=== PATIENT | female | born 1935 | race Caucasian/White ===

== ENCOUNTER → 2017-08-17 | Outpatient (CLI) | payer MEDICARE, OTHER ==
[2017-08-17 13:18] LABS: HEMOGLOBIN 13.6 g/dL (12.0-15.5); HGB HCT DIFFERENCE 1.8; MEAN CORPUSCULAR HEMOGLOBIN 33.3 pg (27.0-33.4); MEAN CORPUSCULAR HGB CONC 34.9 g/dL (32.0-36.0); MEAN CORPUSCULAR VOLUME 95 fl (80-97); RED BLOOD COUNT 4.09 10^6/uL (3.72-5.28); RED CELL DISTRIBUTION WIDTH 12.7 % (11.5-14.0); WHITE BLOOD COUNT 9.1 10^3/uL (4.0-10.5)
== END ==
LOC: OD 12:15
PROVIDERS: ATTEND Internal Medicine
DX: R68.84 Jaw pain (principal)
CPT/HCPCS: 36415; 85027

== ENCOUNTER → 2018-03-27 | Outpatient (CLI) | payer MEDICARE, OTHER ==
[2018-03-27 10:39] LABS: ALANINE AMINOTRANSFERASE 26 U/L (9-52); ALKALINE PHOSPHATASE 86 U/L (38-126); ANION GAP 14 (5-19); ASPARTATE AMINO TRANSFERASE 22 U/L (14-36); BILIRUBIN,DIRECT 0.3 mg/dL (0.0-0.4); BILIRUBIN,TOTAL 0.5 mg/dL (0.2-1.3); BLOOD UREA NITROGEN 38 mg/dL (7-20); CALCIUM 10.8 mg/dL (8.4-10.2); CARBON DIOXIDE 31 mmol/L (22-30); CHLORIDE 102 mmol/L (98-107); CHOLESTEROL 198.89 mg/dL (0-200); GLUCOSE 106 mg/dL (75-110); POTASSIUM 4.4 mmol/L (3.6-5.0); SODIUM 147.1 mmol/L (137-145); TOTAL PROTEIN 8.5 g/dL (6.3-8.2); TRIGLYCERIDES 150 mg/dL (<150)
[2018-03-27 10:50] LABS: DIRECT LDL 109 mg/dL (<100)
[2018-03-27 10:55] LABS: FREE T4 (FREE THYROXINE) 1.09 ng/dL (0.78-2.19)
[2018-03-27 11:09] LABS: THYROID STIMULATING HORMONE 2.61 uIU/mL (0.47-4.68)
== END ==
LOC: OD 09:38
PROVIDERS: ATTEND Internal Medicine
DX: E11.9 Type 2 diabetes mellitus without complications (principal); E03.9 Hypothyroidism, unspecified; E78.00 Pure hypercholesterolemia, unspecified; Z79.899 Other long term (current) drug therapy
CPT/HCPCS: 36415; 80053; 80061; 83036; 84439; 84443

== ENCOUNTER → 2018-04-05 | Outpatient (CLI) | payer MEDICARE, OTHER ==
[2018-04-05 16:41] LABS: ABSOLUTE BASOPHILS # (AUTO) 0.1 10^3/uL (0.0-0.2); ABSOLUTE EOSINOPHILS # (AUTO) 0.5 10^3/uL (0.0-0.6); ABSOLUTE LYMPHOCYTES (AUTO) 3.2 10^3/uL (0.5-4.7); ABSOLUTE MONOCYTES (AUTO) 0.7 10^3/uL (0.1-1.4); ABSOLUTE NEUT (AUTO) 3.7 10^3/uL (1.7-8.2); BASOPHILS % (AUTO) 1.1 % (0-2); EOSINOPHILS % (AUTO) 6.4 % (0-6); HEMATOCRIT 37.1 % (36.0-47.0); HEMOGLOBIN 12.7 g/dL (12.0-15.5); MEAN CORPUSCULAR HEMOGLOBIN 31.9 pg (27.0-33.4); MEAN CORPUSCULAR HGB CONC 34.3 g/dL (32.0-36.0); MEAN CORPUSCULAR VOLUME 93 fl (80-97); PLATELET COUNT 274 10^3/uL (150-450); RED BLOOD COUNT 3.98 10^6/uL (3.72-5.28); RED CELL DISTRIBUTION WIDTH 12.9 % (11.5-14.0); SEGMENTED NEUTROPHILS % (AUTO) 45.5 % (42-78); TOTAL CELLS COUNTED % (AUTO) 100 %; WHITE BLOOD COUNT 8.2 10^3/uL (4.0-10.5)
[2018-04-05 17:04] LABS: IRON 77.1 ug/dL (37-170)
== END ==
LOC: OD 15:28
PROVIDERS: ATTEND Internal Medicine
DX: D64.9 Anemia, unspecified (principal); R53.83 Other fatigue
CPT/HCPCS: 36415; 82607; 82728; 83540; 85025

== ENCOUNTER 2018-10-12 15:47 | Inpatient (IN) | payer MEDICARE, OTHER ==
[2018-10-12] MEDS ORDERED: MECLIZINE HCL 25 MG TABLET PO ONE (17:56)
[2018-10-12] MEDS ORDERED: NORMAL SALINE 1000 ML 1,000 ML IV ONE ×2 (17:56→20:25)
--- NOTE | 2018-10-12 18:03 | ER Document Report ---
ED Medical Screen (RME) - General Chief Complaint: Dizziness Stated Complaint: WEAKNESS,DIZZINESS Time Seen by Provider: 10/12/18 17:55 TRAVEL OUTSIDE OF THE [place] IN LAST 30 DAYS: No - HPI Notes: 10/12/18 17:57 Patient is an 82-year-old female with a history of hypertension, hypothyroidism , chronic pain who presents to the ED complaining of dizziness after having 24 hours of nausea, vomiting, and diarrhea. Patient states that the symptoms started 2 days ago. Patient states that the dizziness is worse when she stands from a seated position and she feels like she is spinning, not the room. Denies any significant cardiac pulmonary medical history otherwise. She is able to eat and drink without any difficulties. She is urinating normally. Pt states she was leaning forward on the toilet when she lost her balance and ' bumped' her head off of the door. No LOC. No head pain since then or swelling. Dizziness was prior. Not on blood thinners. Denies any headache, fever, neck pain, changes in vision/speech/mentation/hearing, URI, sore throat, chest pain, palpitations, syncope, cough, shortness of breath, wheeze, dyspnea, abdominal pain, nausea/vomiting/diarrhea, urinary retention, dysuria, hematuria , loss of control of bowel or bladder, numbness/tingling, saddle anesthesia, muscle paralysis/weakness, or rash. I have treated and performed a rapid initial assessment of this patient. A comprehensive ED assessment and evaluation of the patient, analysis of test results and completion of medical decision making process will be conducted by additional ED providers. Reviewed with Dr. Tamayo. No further labs/imaging needed based on this triage visit until eval with mainside provider. PHYSICAL EXAMINATION: GENERAL: Well-appearing, well-nourished and in no acute distress. A&Ox4. Answers questions appropriately. Head: atraumatic. No tenderness. No ecchymosis, step-off, hematoma, or bogginess. No wallace sign. Eyes: PERRLA, EOMI, No obvious nystagmus. Ears: no hemotympanum Throat: No airway compromise. tongue midline. Uvula rises midline. LUNGS: Breath sounds clear to auscultation bilaterally and equal. No wheezes rales or rhonchi. HEART: Regular rate and rhythm without murmurs, rubs, gallops. Extremities: No cyanosis, clubbing, or edema b/l. NEUROLOGICAL: Normal speech, normal gait. Cranial nerves grossly intact. GCS of 15. PSYCH: Normal mood, normal affect. - Related Data Allergies/Adverse Reactions: guaifenesin [From Entex] Allergy (Severe, Verified 10/12/18 17:42) rash nitrofurantoin macrocrystalline [From Macrodantin] Allergy (Severe, Verified 17:42) rash phenylephrine HCl [From Entex] Allergy (Severe, Verified 10/12/18 17:42) rash phenylpropanolamine [From Entex] Allergy (Severe, Verified 10/12/18 17:42) rash pseudoephedrine tannate [From Entex] Allergy (Severe, Verified 10/12/18 17:42) rash Sulfa (Sulfonamide Antibiotics) Allergy (Severe, Verified 10/12/18 17:42) rash Home Medications: citalopram. amlodipine. HCTZ. synthroid. zyrtec. magnesium. mobic. gabapentin. norco. trazedone. aspirinflonase. restasis. pataday Past Medical History - Social History Chew tobacco use (# tins/day): No Frequency of alcohol use: None Drug Abuse: None - Past Medical History Cardiac Medical History: Reports: Hx Hypertension - on meds Denies: Hx Coronary Artery Disease, Hx Heart Attack Pulmonary Medical History: Denies: Hx Asthma, Hx Bronchitis, Hx COPD, Hx Pneumonia Neurological Medical History: Denies: Hx Cerebrovascular Accident, Hx Seizures Renal/ Medical History: Denies: Hx Peritoneal Dialysis GI Medical History: Denies: Hx Hepatitis, Hx Hiatal Hernia, Hx Ulcer Musculoskeltal Medical History: Reports Hx Arthritis Infectious Medical History: Denies: Hx Hepatitis Past Surgical History: Reports: Hx Hysterectomy. Denies: Hx Mastectomy, Hx Open Heart Surgery, Hx Pacemaker - Immunizations Hx Diphtheria, Pertussis, Tetanus Vaccination: No Physical Exam - Vital signs Vitals: Temp Pulse Resp BP Pulse Ox 97.3 F 64 16 127/56 H 91 L 10/12/18 15:52 10/12/18 15:52 10/12/18 15:52 10/12/18 15:52 10/12/18 15:52 Course - Vital Signs Vital signs: Temp Pulse Resp BP Pulse Ox 97.3 F 64 16 127/56 H 91 L 10/12/18 15:52 10/12/18 15:52 10/12/18 15:52 10/12/18 15:52 10/12/18 15:52
[2018-10-12 18:58] LABS: ABSOLUTE BASOPHILS # (AUTO) 0.1 10^3/uL (0.0-0.2); ABSOLUTE EOSINOPHILS # (AUTO) 0.4 10^3/uL (0.0-0.6); ABSOLUTE LYMPHOCYTES (AUTO) 2.7 10^3/uL (0.5-4.7); ABSOLUTE MONOCYTES (AUTO) 1.3 10^3/uL (0.1-1.4); ABSOLUTE NEUT (AUTO) 11.8 10^3/uL (1.7-8.2); BASOPHILS % (AUTO) 0.5 % (0-2); EOSINOPHILS % (AUTO) 2.3 % (0-6); HEMATOCRIT 36.3 % (36.0-47.0); HEMOGLOBIN 12.4 g/dL (12.0-15.5); LYMPHOCYTES % (AUTO) 16.6 % (13-45); MEAN CORPUSCULAR HEMOGLOBIN 32.9 pg (27.0-33.4); MEAN CORPUSCULAR HGB CONC 34.1 g/dL (32.0-36.0); MEAN CORPUSCULAR VOLUME 96 fl (80-97); MONOCYTES % (AUTO) 8.1 % (3-13); PLATELET COUNT 234 10^3/uL (150-450); RED BLOOD COUNT 3.77 10^6/uL (3.72-5.28); RED CELL DISTRIBUTION WIDTH 12.7 % (11.5-14.0); SEGMENTED NEUTROPHILS % (AUTO) 72.5 % (42-78); TOTAL CELLS COUNTED % (AUTO) 100 %; WHITE BLOOD COUNT 16.2 10^3/uL (4.0-10.5)
[2018-10-12 19:26] LABS: ALANINE AMINOTRANSFERASE 17 U/L (9-52); ALBUMIN 4.5 g/dL (3.5-5.0); ALKALINE PHOSPHATASE 81 U/L (38-126); ANION GAP 12 (5-19); ASPARTATE AMINO TRANSFERASE 31 U/L (14-36); BILIRUBIN,DIRECT 0.4 mg/dL (0.0-0.4); BILIRUBIN,TOTAL 0.7 mg/dL (0.2-1.3); BLOOD UREA NITROGEN 83 mg/dL (7-20); CALCIUM 9.1 mg/dL (8.4-10.2); CARBON DIOXIDE 28 mmol/L (22-30); CHLORIDE 95 mmol/L (98-107); GLUCOSE 118 mg/dL (75-110); POTASSIUM 4.7 mmol/L (3.6-5.0); SODIUM 135.3 mmol/L (137-145); TOTAL PROTEIN 8.1 g/dL (6.3-8.2)
--- NOTE | 2018-10-12 20:09 | ER Document Report ---
ED General - General Chief Complaint: Dizziness Stated Complaint: WEAKNESS,DIZZINESS Time Seen by Provider: 10/12/18 17:55 Notes: Patient is an 82-year-old female who presents to the emergency department with dizziness. She is started having nausea, vomiting, and diarrhea on Sunday. Per her daughter and her who are at bedside, on she laid in bed most of the day and did not do anything. On Sunday they attempted to rehydrate her at home, but she still felt dizzy. She says she still felt dizzy , but not quite as much as she did earlier. She also has had 2 falls in this time. She has a history of scoliosis, and she states that her neck does not feel quite right. She constantly wears a soft cervical collar for comfort. Her daughter states that she has not been herself, but it might be because she has been dehydrated from her vomiting and diarrhea. She denies any fever, chills, or night sweats. She has a history of hypertension, urinary tract infections, hypothyroidism, and chronic back pain. She sees Dr. Gray her primary care doctor and Dr. Gold is her gambling counsellor. TRAVEL OUTSIDE OF THE [place] IN LAST 30 DAYS: No - Related Data Allergies/Adverse Reactions: guaifenesin [From Entex] Allergy (Severe, Verified 10/12/18 17:42) rash nitrofurantoin macrocrystalline [From Macrodantin] Allergy (Severe, Verified 17:42) rash phenylephrine HCl [From Entex] Allergy (Severe, Verified 10/12/18 17:42) rash phenylpropanolamine [From Entex] Allergy (Severe, Verified 10/12/18 17:42) rash pseudoephedrine tannate [From Entex] Allergy (Severe, Verified 10/12/18 17:42) rash Sulfa (Sulfonamide Antibiotics) Allergy (Severe, Verified 10/12/18 17:42) rash Home Medications: citalopram. amlodipine. HCTZ. synthroid. zyrtec. magnesium. mobic. gabapentin. norco. trazedone. aspirinflonase. restasis. pataday Past Medical History - Social History Smoking Status: Never Smoker Chew tobacco use (# tins/day): No Frequency of alcohol use: None Drug Abuse: None Family History: Reviewed & Not Pertinent Patient has suicidal ideation: No Patient has homicidal ideation: No - Past Medical History Cardiac Medical History: Reports: Hx Hypertension - on meds Denies: Hx Coronary Artery Disease, Hx Heart Attack Pulmonary Medical History: Denies: Hx Asthma, Hx Bronchitis, Hx COPD, Hx Pneumonia Neurological Medical History: Denies: Hx Cerebrovascular Accident, Hx Seizures Renal/ Medical History: Denies: Hx Peritoneal Dialysis GI Medical History: Denies: Hx Hepatitis, Hx Hiatal Hernia, Hx Ulcer Musculoskeletal Medical History: Reports Hx Arthritis Infectious Medical History: Denies: Hx Hepatitis Past Surgical History: Reports: Hx Hysterectomy. Denies: Hx Mastectomy, Hx Open Heart Surgery, Hx Pacemaker - Immunizations Hx Diphtheria, Pertussis, Tetanus Vaccination: No Hx Pneumococcal Vaccination: 11/19/04 Review of Systems - Review of Systems Notes: REVIEW OF SYSTEMS: CONSTITUTIONAL : See HPI EENT: Denies eye, ear, throat, or mouth pain, discharge, or symptoms. Denies nasal or sinus congestion. CARDIOVASCULAR: Denies chest pain. RESPIRATORY: Denies shortness of breath, cough, congestion, difficulty breathing , or wheezing. GASTROINTESTINAL: See HPI GENITOURINARY: Denies difficulty urinating, burning, blood in urine, urgency or frequency. MUSCULOSKELETAL: Denies neck and back pain. Denies joint pain or swelling. SKIN: Denies rash, itchiness, or lesions HEMATOLOGIC : Denies easy bruising or bleeding. LYMPHATIC: Denies swollen, painful, enlarged glands. NEUROLOGICAL: Denies no numbness or tingling denies weakness. Denies headache. Denies altered mental status. Denies alteration in speech. PSYCHIATRIC: Denies stress, anxiety, alteration in sleep patterns, or depression. All other systems reviewed and negative. Physical Exam - Vital signs Vitals: Temp Pulse Resp BP Pulse Ox 97.3 F 64 16 127/56 H 91 L 10/12/18 15:52 10/12/18 15:52 10/12/18 15:52 10/12/18 15:52 10/12/18 15:52 - Notes Notes: PHYSICAL EXAMINATION: GENERAL: Appears dehydrated, well-nourished, no acute distress. HEAD: Normocephalic, atraumatic. EYES: PERRL, conjunctiva normal, all extraocular movements intact, sclera nonicteric ENT: Dry mucous membranes. NECK: Supple, no noticeable swelling, redness, rash. Normal range of motion. LUNGS: Equal breath sounds bilaterally and clear to auscultation. No wheezes rales or rhonchi. CARDIOVASCULAR: Grade II systolic murmur. S1-S2, regular rate, regular rhythm. Radial pulses 2+, normal. ABDOMEN: Normoactive bowel sounds. Soft, nontender, no guarding, no rebound tenderness, and no masses palpated. EXTREMITIES: Normal strength and range of motion, no pitting or edema. No cyanosis. NEUROLOGICAL: Moves all extremities upon command. Strength 5/5 in all extremities. PSYCH: Normal mood, normal affect. SKIN: Warm, dry. No rash, lesions, ulcerations noted. Normal skin turgor. Course - Re-evaluation Re-evalutation: 10/12/18 20:10 Based of patient's current falls and hitting her head, she will be sent for CT of the head and spine. Differential diagnosis includes subdural hematoma, dehydration. 10/12/18 20:27 Based off the patient's labs, she does have a prerenal azotemia. She is markedly dehydrated. I will start her on maintenance IV fluids to help with hydration. 10/12/18 23:32 The patient has a large urinary tract infection. I have spoke with the family about her laboratory findings. She will need to be admitted for her acute kidney injury and dehydration. I have discussed this case with Dr. Bassett and he agrees. I will call Dr. Ayala for admission. 10/12/18 23:[address] Ayala. He agreed to admission to the telemetry unit. - Vital Signs Vital signs: Temp Pulse Resp BP Pulse Ox 98.0 F 59 L 16 118/49 L 95 10/13/18 02:06 10/13/18 02:06 10/13/18 02:06 10/13/18 02:06 10/13/18 02:06 - Laboratory Result Diagrams: 10/12/18 18:37 10/12/18 18:37 Laboratory results interpreted by me: 10/12/18 10/12/18 10/12/18 18:37 18:37 20:20 WBC 16.2 H Absolute Neutrophils 11.8 H Sodium 135.3 L Chloride 95 L BUN 83 H Creatinine 2.73 H Est GFR ( Amer) 20 L Est GFR (Non-Af Amer) 17 L Glucose 118 H Magnesium 3.0 H Urine Blood SMALL H Ur Leukocyte Esterase LARGE H - EKG Interpretation by Me Additional EKG results interpreted by me: 10/12/18 19:30 First-degree heart block with a right bundle branch block. LA 211; QRS 140; QT 424; QTC 445; ST elevations or depressions. Discharge - Discharge Clinical Impression: Acute kidney injury, Dehydration, Urinary tract infection Condition: Fair Disposition: ADMITTED INPATIENT Admitting Provider: Hospitalist Unit Admitted: Telemetry
[2018-10-12] MEDS ORDERED: NORMAL SALINE 1000 ML 500 ML IV ONE (20:22)
[2018-10-12 20:35] LABS: APPEARANCE,URINE TURBID; BILIRUBIN,URINE NEGATIVE (NEGATIVE); COLOR,URINE YELLOW; GLUCOSE, URINE NEGATIVE (NEGATIVE); KETONES,URINE NEGATIVE (NEGATIVE); LEUKOCYTE ESTERASE,URINE LARGE (NEGATIVE); NITRITE,URINE NEGATIVE (NEGATIVE); PROTEIN,URINE NEGATIVE (NEGATIVE); URINE SPECIFIC GRAVITY 1.006; UROBILINOGEN,URINE NEGATIVE mg/dL (<2.0)
--- NOTE | 2018-10-12 21:15 | RADIOLOGY REPORT (SQ) ---
CT BRAIN AND CERVICAL SPINE WITHOUT IV CONTRAST HISTORY: Trauma. COMPARISON: None. TECHNIQUE: CT scan of the brain and cervical spine without IV contrast. This exam was performed according to our departmental dose-optimization program, which includes automated exposure control, adjustment of the mA and/or kV according to patient size and/or use of iterative reconstruction technique. FINDINGS: BRAIN: The ventricles, cisterns, and sulci are age-appropriate. The colby-white matter differentiation is preserved without evidence of acute infarction. No acute intracranial hemorrhage or extra-axial fluid collection is seen. No midline shift, mass effect, or hydrocephalus. No air-fluid levels are seen in the sinuses. No calvarial fracture. CERVICAL SPINE: No acute fracture. Cervical alignment is maintained without static listhesis. Mild degenerative disc disease at C6-C7. Mild multilevel facet arthropathy. No advanced spinal canal stenosis. No prevertebral soft tissue swelling. IMPRESSION: 1. No acute intracranial abnormality. 2. No acute fracture or static listhesis of the cervical spine.
--- NOTE | 2018-10-12 21:41 | EKG REPORT ---
SEVERITY:- ABNORMAL ECG - SINUS RHYTHM RIGHT BUNDLE BRANCH BLOCK : Confirmed by: Mary Anaya MD 12-Oct-2018 21:40:40
[2018-10-12] MEDS ORDERED: CEFTRIAXONE 1 GM/D5W RTU 1 GM/50 ML RTUPB IV ONE (22:09)
[2018-10-12] MEDS ORDERED: IPRATROPIUM/ALBUTEROL 0.5-2.5 MG/3 ML AMPUL NEB PRN (23:53)
[2018-10-12] MEDS ORDERED: GLUCAGON,HUMAN RECOMB 1 MG INJ IM PRN (23:53)
[2018-10-12] MEDS ORDERED: ACETAMINOPHEN 325 MG TABLET PO PRN (23:53)
[2018-10-12] MEDS ORDERED: DEXTROSE 40% GEL 15 GM TUBE PO PRN ×2 (23:53)
[2018-10-12] MEDS ORDERED: DEXTROSE 50%-WATER 25 GM/50 ML DISP.SYRIN IV PRN ×2 (23:53)
[2018-10-12] MEDS ORDERED: INSULIN REG, HUMAN 100 UNIT/ML 3 ML VIAL (PYX) SUBCUT PRN (23:53)
--- NOTE | 2018-10-13 05:40 | PDOC H&P ---
History of Present Illness Admission Date/PCP: 10/13/18 00:03 ELVIS DE LOS SANTOS MD Patient complains of: Weakness History of Present Illness: ALFONZO KARIMI is a 82 year old female with a past medical history of diabetes, hypertension, hypothyroidism, anxiety, rectal prolapse, recurrent constipation and urinary tract infection. She presents with 4 days of generalized weakness, anorexia and nausea with diarrhea. She denies recent antibiotics or change in medications, infectious contacts, suspect meal and workup reveals urinary tract infection and acute renal failure. She started on empiric antibiotics, IV fluids and referred to the hospitalist for admission. Past Medical History Cardiac Medical History: Reports: Hypertension - on meds Denies: Coronary Artery Disease, Myocardial Infarction Pulmonary Medical History: Denies: Asthma, Bronchitis, Chronic Obstructive Pulmonary Disease (COPD), Pneumonia Neurological Medical History: Denies: Seizures GI Medical History: Denies: Hepatitis, Hiatal Hernia Musculoskeltal Medical History: Reports: Arthritis Hematology: Denies: Anemia, Sickle Cell Disease Past Surgical History Past Surgical History: Reports: Hysterectomy Denies: Amputation, Mastectomy, Pacemaker Social History Information Source: Patient, [facility] Records Lives with: Family Smoking Status: Never Smoker Last Time Smoked: 50 years ago Frequency of Alcohol Use: None Hx Recreational Drug Use: No Hx Prescription Drug Abuse: No - Advance Directive Resuscitation Status: Full Code Family History Family History: Hypertension Parental Family History Reviewed: Yes Children Family History Reviewed: Yes Sibling(s) Family History Reviewed.: Yes Medication/Allergy Home Medications: Amlodipine Besylate/Benazepril [Lotrel 10-20 mg Capsule] 1 each PO DAILY Gabapentin [Neurontin 300 Mg Capsule] 300 mg PO QHS 09/05/12 Levothyroxine Sodium [Synthroid 150 Mcg Tablet] 150 mcg PO DAILY 09/05/12 Metformin HCl [Glucophage 500 Mg Tablet] 500 mg PO BID 09/05/12 Trazodone HCl [Desyrel 50 Mg Tablet] 50 mg PO DAILY 09/05/12 Esomeprazole Magnesium [Nexium] 40 mg PO DAILY 09/14/14 Hydrochlorothiazide 12.5 mg PO DAILY 09/14/14 Lorazepam 1 mg PO DAILY 09/14/14 Meloxicam [Mobic 7.5 Mg Tablet] 7.5 mg PO DAILY 09/14/14 Allergies/Adverse Reactions: guaifenesin [From Entex] Allergy (Severe, Verified 10/12/18 17:42) rash nitrofurantoin macrocrystalline [From Macrodantin] Allergy (Severe, Verified 17:42) rash phenylephrine HCl [From Entex] Allergy (Severe, Verified 10/12/18 17:42) rash phenylpropanolamine [From Entex] Allergy (Severe, Verified 10/12/18 17:42) rash pseudoephedrine tannate [From Entex] Allergy (Severe, Verified 10/12/18 17:42) rash Sulfa (Sulfonamide Antibiotics) Allergy (Severe, Verified 10/12/18 17:42) rash Review of Systems Constitutional: ABSENT: chills, fever(s), headache(s), weight gain, weight loss Eyes: ABSENT: visual disturbances Ears: ABSENT: hearing changes Cardiovascular: ABSENT: chest pain, dyspnea on exertion, edema, orthropnea, palpitations Respiratory: ABSENT: cough, hemoptysis Gastrointestinal: ABSENT: abdominal pain, constipation, diarrhea, hematemesis, hematochezia, nausea, vomiting Genitourinary: ABSENT: dysuria, hematuria Musculoskeletal: ABSENT: joint swelling Integumentary: ABSENT: rash, wounds Neurological: ABSENT: abnormal gait, abnormal speech, confusion, dizziness, focal weakness, syncope Psychiatric: ABSENT: anxiety, depression, homidical ideation, suicidal ideation Endocrine: ABSENT: cold intolerance, heat intolerance, polydipsia, polyuria Hematologic/Lymphatic: ABSENT: easy bleeding, easy bruising Physical Exam Vital Signs: Temp Pulse Resp BP Pulse Ox 98.0 F 59 L 16 118/49 L 95 10/13/18 02:06 10/13/18 02:06 10/13/18 02:06 10/13/18 02:06 10/13/18 02:06 Intake & Output 10/11/18 10/12/18 10/13/18 11:59 11:59 11:59 Intake Total 50 Balance 50 Weight 74.2 kg General appearance: PRESENT: no acute distress, well-developed, well-nourished Head exam: PRESENT: atraumatic, normocephalic Eye exam: PRESENT: conjunctiva pink, EOMI, PERRLA. ABSENT: scleral icterus Ear exam: PRESENT: normal external ear exam Mouth exam: PRESENT: moist, tongue midline Neck exam: ABSENT: carotid bruit, JVD, lymphadenopathy, thyromegaly Respiratory exam: PRESENT: clear to auscultation [place]. ABSENT: rales, rhonchi, wheezes Cardiovascular exam: PRESENT: RRR. ABSENT: diastolic murmur, rubs, systolic murmur Pulses: PRESENT: normal dorsalis pedis pul Vascular exam: PRESENT: normal capillary refill GI/Abdominal exam: PRESENT: normal bowel sounds, soft. ABSENT: distended, guarding, mass, organolmegaly, rebound, tenderness Rectal exam: PRESENT: deferred Extremities exam: PRESENT: full ROM. ABSENT: calf tenderness, clubbing, pedal edema Neurological exam: PRESENT: alert, awake, oriented to person, oriented to place , oriented to time, oriented to situation, CN II-XII grossly intact. ABSENT: motor sensory deficit Psychiatric exam: PRESENT: appropriate affect, normal mood. ABSENT: homicidal ideation, suicidal ideation Skin exam: PRESENT: dry, intact, warm. ABSENT: cyanosis, rash Results Impressions: Cervical Spine CT 10/12/18 20:02 IMPRESSION: 1. No acute intracranial abnormality. 2. No acute fracture or static listhesis of the cervical spine. Head CT 10/12/18 20:02 IMPRESSION: 1. No acute intracranial abnormality. 2. No acute fracture or static listhesis of the cervical spine. Assessment & Plan - Diagnosis (1) Urinary tract infection Is this a current diagnosis for this admission?: Yes Plan: Complicated by rectal prolapse, empiric antibiotics initiated, follow-up CBC and urine culture. (2) Acute kidney injury Is this a current diagnosis for this admission?: Yes Plan: Likely secondary to poor p.o. intake IV fluid challenge, avoid nephrotoxic meds and doses reevaluate chemistry (3) Dehydration Is this a current diagnosis for this admission?: Yes Plan: IV fluid challenge, encourage p.o. fluids - Time Time Spent: 30 to 50 Minutes - Inpatient Certification Medical Necessity: Need Close Monitoring Due to Risk of Patient Decompensation
[2018-10-13 06:20] LABS: ABSOLUTE BASOPHILS # (AUTO) 0.1 10^3/uL (0.0-0.2); ABSOLUTE EOSINOPHILS # (AUTO) 0.6 10^3/uL (0.0-0.6); ABSOLUTE LYMPHOCYTES (AUTO) 2.4 10^3/uL (0.5-4.7); ABSOLUTE MONOCYTES (AUTO) 0.9 10^3/uL (0.1-1.4); ABSOLUTE NEUT (AUTO) 9.5 10^3/uL (1.7-8.2); BASOPHILS % (AUTO) 0.4 % (0-2); EOSINOPHILS % (AUTO) 4.6 % (0-6); HEMATOCRIT 29.9 % (36.0-47.0); LYMPHOCYTES % (AUTO) 17.8 % (13-45); MEAN CORPUSCULAR HGB CONC 34.5 g/dL (32.0-36.0); MEAN CORPUSCULAR VOLUME 96 fl (80-97); MONOCYTES % (AUTO) 6.5 % (3-13); PLATELET COUNT 184 10^3/uL (150-450); RED BLOOD COUNT 3.12 10^6/uL (3.72-5.28); RED CELL DISTRIBUTION WIDTH 12.4 % (11.5-14.0); SEGMENTED NEUTROPHILS % (AUTO) 70.7 % (42-78); TOTAL CELLS COUNTED % (AUTO) 100 %; WHITE BLOOD COUNT 13.5 10^3/uL (4.0-10.5)
[2018-10-13 06:38] LABS: ANION GAP 9 (5-19); BLOOD UREA NITROGEN 64 mg/dL (7-20); CALCIUM 8.2 mg/dL (8.4-10.2); CARBON DIOXIDE 25 mmol/L (22-30); CHLORIDE 106 mmol/L (98-107); GLUCOSE 131 mg/dL (75-110); SODIUM 140.1 mmol/L (137-145)
[2018-10-13] MEDS: HEPARIN SOD (PORCINE) 5,000 UNIT/ML 1 ML SYRINGE SUBCUT SCH ×3 (06:56→21:14)
[2018-10-13 07:14] LABS: HEMOGLOBIN 10.3 g/dL (12.0-15.5)
[2018-10-13] MEDS ORDERED: LEVOTHYROXINE SODIUM 0.15 MG TABLET PO SCH (10:00)
[2018-10-13] MEDS ORDERED: CEFTRIAXONE 1 GM/D5W RTU 1 GM/50 ML RTUPB IV SCH (10:00)
[2018-10-13] MEDS: BENAZEPRIL HCL 20 MG TABLET PO SCH (10:12)
[2018-10-13] MEDS: LORAZEPAM 1 MG TABLET PO SCH (10:12)
[2018-10-13] MEDS: TRAZODONE HCL 50 MG TABLET PO SCH (10:12)
[2018-10-13] MEDS: AMLODIPINE BESYLATE 10 MG TABLET PO SCH (10:12)
[2018-10-13] MEDS: DOCUSATE SODIUM 100 MG CAPSULE PO SCH ×2 (10:12→17:23)
[2018-10-13] MEDS: LEVOTHYROXINE SODIUM 0.15 MG TABLET PO SCH (10:12)
[2018-10-13] MEDS ORDERED: HYDROCODONE/ACETAMINOPHEN 5-325 MG TABLET PO PRN (11:08)
[2018-10-13] MEDS ORDERED: NORMAL SALINE 1000 ML 1,000 ML IV PRN ×2 (11:08)
[2018-10-13] MEDS ORDERED: GABAPENTIN 300 MG CAPSULE PO SCH (22:00)
[2018-10-13] MEDS ORDERED: CEFTRIAXONE SODIUM 1,000 MG in DEXTROSE 5%-WATER 50 ML IV SCH (22:00)
[2018-10-14] MEDS: LEVOTHYROXINE SODIUM 0.15 MG TABLET PO SCH (05:31)
[2018-10-14] MEDS: HEPARIN SOD (PORCINE) 5,000 UNIT/ML 1 ML SYRINGE SUBCUT SCH (05:35)
[2018-10-14 09:39] LABS: ANION GAP 15 (5-19); BLOOD UREA NITROGEN 44 mg/dL (7-20); CALCIUM 9.6 mg/dL (8.4-10.2); CARBON DIOXIDE 23 mmol/L (22-30); CHLORIDE 107 mmol/L (98-107); GLUCOSE 97 mg/dL (75-110); POTASSIUM 4.5 mmol/L (3.6-5.0); SODIUM 144.7 mmol/L (137-145)
[2018-10-14] MEDS: LORAZEPAM 1 MG TABLET PO SCH (11:15)
[2018-10-14] MEDS: DOCUSATE SODIUM 100 MG CAPSULE PO SCH (11:15)
[2018-10-14] MEDS: TRAZODONE HCL 50 MG TABLET PO SCH (11:16)
[2018-10-14] MEDS: AMLODIPINE BESYLATE 10 MG TABLET PO SCH (11:16)
[2018-10-14] MEDS: BENAZEPRIL HCL 20 MG TABLET PO SCH (11:16)
[2018-10-14 12:31] VITALS: BP 118/49
--- NOTE | 2018-10-20 15:24 | PDOC DISCHARGE SUMMARY ---
General - Admit/Disc Date/PCP Admission Date/Primary Care Provider: 10/13/18 00:03 ELVIS DE LOS SANTOS MD Discharge Date: 10/14/18 - Discharge Diagnosis (1) Acute kidney injury Is this a current diagnosis for this admission?: Yes (2) Urinary tract infection Is this a current diagnosis for this admission?: Yes - Additional Information Resuscitation Status: Full Code Discharge Diet: As Tolerated, Cardiac Discharge Activity: Activity As Tolerated, Balance Activity w/Rest, Energy Conservation Prescriptions: Amoxicillin/Potassium Clav [Augmentin 500-125 Tablet] 1 each PO Q12 #10 tablet Benazepril HCl [Lotensin 20 mg Tablet] 20 mg PO DAILY #30 tablet Home Medications: Amlodipine Besylate/Benazepril [Lotrel 10-20 mg Capsule] 1 each PO DAILY Gabapentin [Neurontin 300 mg Capsule] 300 mg PO Q12 09/05/12 Trazodone HCl [Desyrel 50 mg Tablet] 50 mg PO QHS 09/05/12 Hydrochlorothiazide 12.5 mg PO DAILY 09/14/14 Ascorbic Acid [Vitamin C 500 mg Tablet] 500 mg PO DAILY 10/13/18 Cetirizine HCl [Zyrtec 10 mg Tablet] 10 mg PO DAILY 10/13/18 Citalopram Hydrobromide [Celexa 20 mg Tablet] 20 mg PO DAILY 10/13/18 Cyanocobalamin (Vitamin B-12) [Vitamin B-12 1000 mcg Tablet] 1,000 mcg PO DAILY 10/13/18 Hydrocodone Bit/Acetaminophen [Hydrocodon-Acetaminophen 5-325] 1 tab PO DAILYP PRN 10/13/18 Levothyroxine Sodium [Synthroid 0.112 mg Tablet] 0.112 mg PO Q6AM 10/13/18 Magnesium Oxide [Mag-Ox 400 mg Tablet] 400 mg PO BID 10/13/18 Multivitamin [Tab-A-Shamar (Multiple Vitamin) Tablet] 1 tab PO DAILY 10/13/18 [place]-3/Dha/Epa/Fish Oil [Fish Oil 1,000 mg Softgel] 1,000 mg PO DAILY 10/13/18 Vitamin E (Dl, Acetate) [Vitamin E 400 Unit Capsule] 400 unit PO DAILY 10/13/18 Amoxicillin/Potassium Clav [Augmentin 500-125 Tablet] 1 each PO Q12 #10 tablet 10/14/18 Benazepril HCl [Lotensin 20 mg Tablet] 20 mg PO DAILY #30 tablet 10/14/18 History of Present Illness History of Present Illness: Admitting hospitalist's H&P: ALFONZO KARIMI is a 82 year old female with a past medical history of diabetes, hypertension, hypothyroidism, anxiety, rectal prolapse, recurrent constipation and urinary tract infection. She presents with 4 days of generalized weakness, anorexia and nausea with diarrhea. She denies recent antibiotics or change in medications, infectious contacts, suspect meal and workup reveals urinary tract infection and acute renal failure. She started on empiric antibiotics, IV fluids and referred to the hospitalist for admission. Hospital Course Hospital Course: Patient was admitted as OBS for acute kidney injury and UTI. She was started on IV fluids and Rocephin. On day of discharge, patient says she feels she is at her baseline. Her creatinine significantly improved with IV fluids. Urine culture came back positive for E. coli sensitive to Augmentin. She will be discharged on Augmentin for 5 days. She was also evaluated by PT who recommended home PT. This was arranged by discharge planning. Physical Exam Vital Signs: Temp Pulse Resp BP Pulse Ox 97.9 F 65 18 118/49 L 95 10/14/18 12:27 10/14/18 12:27 10/14/18 12:27 10/14/18 12:27 10/14/18 12:27 General appearance: PRESENT: no acute distress, well-developed, well-nourished Head exam: PRESENT: atraumatic, normocephalic Eye exam: PRESENT: conjunctiva pink, EOMI, PERRLA. ABSENT: scleral icterus Ear exam: PRESENT: normal external ear exam Mouth exam: PRESENT: moist, tongue midline Neck exam: ABSENT: carotid bruit, JVD, lymphadenopathy, thyromegaly Respiratory exam: PRESENT: clear to auscultation [place]. ABSENT: rales, rhonchi, wheezes Cardiovascular exam: PRESENT: RRR. ABSENT: diastolic murmur, rubs, systolic murmur Pulses: PRESENT: normal dorsalis pedis pul GI/Abdominal exam: PRESENT: normal bowel sounds, soft. ABSENT: distended, guarding, mass, organolmegaly, rebound, tenderness Rectal exam: PRESENT: deferred Extremities exam: PRESENT: full ROM. ABSENT: calf tenderness, clubbing, pedal edema Neurological exam: PRESENT: alert, awake, oriented to person, oriented to place , oriented to time, oriented to situation, CN II-XII grossly intact. ABSENT: motor sensory deficit Results Laboratory Results: 10/13/18 05:42 10/14/18 08:59 Impressions: Cervical Spine CT 10/12/18 20:02 IMPRESSION: 1. No acute intracranial abnormality. 2. No acute fracture or static listhesis of the cervical spine. Head CT 10/12/18 20:02 IMPRESSION: 1. No acute intracranial abnormality. 2. No acute fracture or static listhesis of the cervical spine. Qualifiers - * PATIENT BEING DISCHARGED WITH ANY OF THE FOLLOWING DIAGNOSIS: No
== END 2018-10-14 13:17 | disposition home health service (06) | DRG 683 ==
LOC: ER 15:47 → EH 10-13 00:03 → 3S 10-13 01:38
PROVIDERS: ADMIT Internal Medicine; ATTEND Internal Medicine
DX: N17.9 Acute kidney failure, unspecified (principal); N39.0 Urinary tract infection, site not specified; E86.0 Dehydration; I10 Essential (primary) hypertension; E03.9 Hypothyroidism, unspecified; M54.89 Other dorsalgia; M41.9 Scoliosis, unspecified; B96.20 Unspecified Escherichia coli [E. coli] as the cause of diseases classified elsewhere
CPT/HCPCS: 36415; 70450; 72125; 80048; 80053; 81001; 82550; 82962; 83735; 84443; 85025; 87086; 87088; 87186; 93005; 93010; 96361; 96365; 99285; G8978-GP; G8979-GP; J0696; J1644; J1815; J7030; J7620

== ENCOUNTER 2020-03-21 06:23 | Emergency (ER) | payer MEDICARE, OTHER ==
[2020-03-21] MEDS ORDERED: LIDOCAINE 1%/EPINEPHRINE INJ 20 ML VIAL INJ ONE ×2 (06:40→11:51)
--- NOTE | 2020-03-21 06:42 | ER Document Report ---
ED Head/Face/Scalp Injury - General TRAVEL OUTSIDE OF THE [place] IN LAST 30 DAYS: No <SHIRA GONZALEZ - Last Filed: 03/21/20 07:35> <LUCIA AGUDELO - Last Filed: 03/21/20 12:53> - General Chief Complaint: Head Injury without LOC Stated Complaint: FALL/HEAD INJURY Time Seen by Provider: 03/21/20 06:32 Primary Care Provider: ELVIS DE LOS SANTOS MD [Primary Care Provider] - Follow up as needed Notes: Patient is an 84-year-old female that comes emergency department for chief complaint of fall and head injury. She states that she got up to go to the bathroom at home tonight, she states she did not turn on the bathroom light and consequently tripped, she states when she tripped she struck the top of her left head/scalp area on the sink frame. She states this caused a laceration and bleeding. She denies passing out, vomiting, visual changes, focal numbness or weakness, incontinence. She denies any other injuries or any other areas of pain. She is on aspirin but no blood thinners otherwise. She comes by EMS. (SHIRA GONZALEZ) - Related Data Allergies/Adverse Reactions: guaifenesin [From Entex] Allergy (Severe, Verified 10/12/18 17:42) rash nitrofurantoin macrocrystalline [From Macrodantin] Allergy (Severe, Verified 10/12/18 17:42) rash phenylephrine HCl [From Entex] Allergy (Severe, Verified 10/12/18 17:42) rash phenylpropanolamine [From Entex] Allergy (Severe, Verified 10/12/18 17:42) rash pseudoephedrine tannate [From Entex] Allergy (Severe, Verified 10/12/18 17:42) rash Sulfa (Sulfonamide Antibiotics) Allergy (Severe, Verified 10/12/18 17:42) rash Past Medical History - General Information source: Patient - Social History Smoking Status: Never Smoker Chew tobacco use (# tins/day): No Frequency of alcohol use: None Drug Abuse: None Lives with: Family Family History: Hypertension Patient has homicidal ideation: No - Past Medical History Cardiac Medical History: Reports: Hx Hypertension - on meds Denies: Hx Coronary Artery Disease, Hx Heart Attack Pulmonary Medical History: Denies: Hx Asthma, Hx Bronchitis, Hx COPD, Hx Pneumonia Neurological Medical History: Denies: Hx Cerebrovascular Accident, Hx Seizures Renal/ Medical History: Denies: Hx Peritoneal Dialysis GI Medical History: Denies: Hx Hepatitis, Hx Hiatal Hernia, Hx Ulcer Musculoskeletal Medical History: Reports Hx Arthritis Infectious Medical History: Denies: Hx Hepatitis Past Surgical History: Reports: Hx Hysterectomy. Denies: Hx Mastectomy, Hx Open Heart Surgery, Hx Pacemaker - Immunizations Immunizations up to date: Yes Hx Diphtheria, Pertussis, Tetanus Vaccination: Yes Hx Pneumococcal Vaccination: 11/19/04 <SHIRA GONZALEZ - Last Filed: 03/21/20 07:35> Review of Systems - Review of Systems Constitutional: No symptoms reported EENT: No symptoms reported Cardiovascular: No symptoms reported Respiratory: No symptoms reported Gastrointestinal: No symptoms reported Genitourinary: No symptoms reported Female Genitourinary: No symptoms reported Musculoskeletal: See HPI Skin: See HPI Hematologic/Lymphatic: No symptoms reported Neurological/Psychological: See HPI <SANTOSHHARJINDERERIKSHIRA - Last Filed: 03/21/20 07:35> Physical Exam <LISASHIRA - Last Filed: 03/21/20 07:35> - Vital signs Vitals: Temp 97.9 F 03/21/20 06:23 - Notes Notes: GENERAL: Alert, interacts well. No acute distress. HEAD: Normocephalic. Galeas shaped laceration over the mid to left lateral aspect of the scalp extending towards the temporal scalp. Large amount of dried blood, some oozing current bleeding, some noted bruising to the area around the wound. No other trauma noted. EYES: Pupils equal, round, and reactive to light. Extraocular movements intact. ENT: Oral mucosa moist, tongue midline. Oropharynx unremarkable. Airway patent. Nares patent, sinuses non-tender, ear canals unremarkable, TM's intact. NECK: Full range of motion. Supple. Trachea midline. No lymphadenopathy. LUNGS: Clear to auscultation bilaterally, no wheezes, rales, or rhonchi. No respiratory distress. Non-tender chest wall. No signs of trauma. HEART: Regular rate and rhythm. No murmur ABDOMEN: Soft, non-tender. Non-distended. EXTREMITIES: Moves all 4 extremities spontaneously. No edema, normal radial and dorsalis pedis pulses bilaterally. No cyanosis. BACK: no cervical, thoracic, lumbar midline tenderness. No saddle anesthesia, normal distal neurovascular exam. Moves all extremities in full range of motion. NEUROLOGICAL: Alert and oriented x3. Normal speech. Cranial nerves II through XII grossly intact. Strength 5/5 in all extremities. PSYCH: Normal affect, normal mood. SKIN: Warm, dry, normal turgor. No rashes or lesions noted. (SHIRA GONZALEZ) Course <SHIRA GONZALEZ - Last Filed: 03/21/20 07:35> - Re-evaluation Re-evalutation: Patient with negative CT of the head and neck, no acute findings. No loss of consciousness. Patient very alert, neurologically intact, very oriented. No other signs of trauma except for a large laceration to the left lateral scalp. This had very heavy bleeding, when we are attempting to clean it the bleeding became very heavy with a spurting bleed suggesting a small scalp arterial source. This had to be cleaned rapidly, attempted anesthesia with lidocaine with epinephrine, and then began stapling. 9 del placed and I had to suture in between several del before the bleeding stopped. Afterwards the remaining scalp and head was cleaned. Unfortunately a PCT was sprayed with blood in the face while trying to assist, screening labs were performed as a result. Patient consented. No other wounds noted. Vital signs unremarkable. Orthostatics were checked and unremarkable, patient stands without dizziness. (SHIRA GONZALEZ) - Vital Signs Vital signs: Temp Pulse Resp BP Pulse Ox 97.5 F 69 15 149/64 H 96 03/21/20 11:18 03/21/20 11:18 03/21/20 11:18 03/21/20 11:18 03/21/20 11:18 Procedures - Laceration/Wound Repair left scalp Wound length (cm): 5 Wound's Depth, Shape: Irregular, Flap Laceration pre-procedure: Sterile PPE donned, Sterile drapes applied, Shur-Clens applied Anesthetic type: 1% Lidocaine w/epi Volume Anesthetic (mLs): 6 Wound explored: Clean, No foreign body removed Wound Repaired With: Sutures, Del - 9 Suture Size/Type: 4:0, Nylon Number of Sutures: 5 Layer Closure?: No Post-procedure NV exam normal: Yes Complications: No <SHIRA GONZALEZ - Last Filed: 03/21/20 07:35> - Laceration/Wound Repair left scalp Wound length (cm): 9 Wound Repaired With: Rembrandt - 15 Number of Sutures: 8 <LUCIA AGUDELO - Last Filed: 03/21/20 12:53> - Laceration/Wound Repair left scalp Notes: 03/21/20 12:52 After wound was cleared of dried blood, laceration was noted to extend additional 4 cm. Wound was closed with an additional 3 sutures and 6 del. (LUCIA AGUDELO) Discharge <SHIRA GONZALEZ - Last Filed: 03/21/20 07:35> <LUCIA AGUDELO - Last Filed: 03/21/20 12:53> - Discharge Clinical Impression: Fall Qualifiers: Encounter type: initial encounter Qualified Code(s): W19.XXXA - Unspecified fall, initial encounter Head injury Qualifiers: Encounter type: initial encounter Qualified Code(s): S09.90XA - Unspecified injury of head, initial encounter Scalp wound Qualifiers: Encounter type: initial encounter Open wound type: laceration Foreign body presence: without foreign body Qualified Code(s): S01.01XA - Laceration without foreign body of scalp, initial encounter Condition: Stable Disposition: HOME, SELF-CARE Additional Instructions: The CAT scan of your head and neck did not show any concerning findings. The wound from your scalp was bleeding very heavily with a small arterial spurting, as result of both del and sutures had to be placed to make this stop. Keep area clean, clean gently with soap and water. Please be reevaluated in 1 week either with primary care or here for additional care and suture/staple removal. Please follow head and precautions listed below, return for any concerning symptoms. Head Injury Precautions At this point, there is no evidence that your head injury is serious. Observation is necessary, however. You may take acetaminophen according to the directions on the bottle. Do not take any medication that may alter your level of alertness (unless you've discussed it with the doctor first). Limit activity for the first 24 hours. During the first 24 hours, check to see approximately every two to three hours that the patient is easily arousable, responds normally, and can perform common tasks such as walking without difficulty. Contact your doctor or go to the hospital if any of the following things occur: Persistent vomiting, difficulty in arousing the patient, worsening or continued headache, or failure to improve as expected. Head injuries can cause symptoms that persist for a few days or even a few weeks. Referrals: ELVIS DE LOS SANTOS MD [Primary Care Provider] - Follow up as needed
--- NOTE | 2020-03-21 07:21 | RADIOLOGY REPORT (SQ) ---
CT of the head: 03/21/2020 6:16 AM CDT HISTORY: 84-year-old patient with fall, head injury. COMPARISON: CT the head and neck from 10/12/2018 TECHNIQUE: Multiple axial contiguous images were obtained through the head without intravenous contrast administered. This exam was performed according to our departmental dose-optimization program, which includes automated exposure control, adjustment of the mA and/or KV according to the patient's size and/or use of iterative reconstruction technique. FINDINGS: The ventricles and cerebral sulci demonstrate mild prominence, consistent with cerebral atrophy. There are mild periventricular hypodensities, suggestive of periventricular white matter changes. The colby-white matter differentiation is within normal limits. Both orbits appear unremarkable. The mastoid air cells appear clear. The visualized paranasal sinuses appear clear. The calvarium is intact. No extra-axial fluid collection is seen. No midline shift or mass effect is apparent. There are no findings to suggest acute intracranial hemorrhage. There is subcutaneous, soft tissue swelling seen over the left superior frontal and parietal region. There is some overlying subcutaneous emphysema. IMPRESSION: 1. No acute intracranial hemorrhage is seen. 2. Mild cerebral atrophy and periventricular white matter changes are seen. CT CERVICAL SPINE: 03/21/2020 6:18 AM CDT TECHNIQUE: Axial contiguous images were obtained through the cervical spine without intravenous contrast. Sagittal and coronal reconstructions were also reviewed. This exam was performed according to our departmental dose-optimization program, which includes automated exposure control, adjustment of the mA and/or KV according to the patient's size and/or use of iterative reconstruction technique. COMPARISON: None available INDICATION: 84-year old patient with neck pain, trauma. FINDINGS: The vertebral bodies appear well aligned. The vertebral body heights appear well maintained. No significant pre-vertebral soft tissue swelling is noted. No definite fracture or subluxation is noted. Multilevel facet hypertrophy is noted. Mild multilevel intervertebral disc space narrowing is seen. The visualized brain parenchyma appears unremarkable. The craniocervical junction is unremarkable. Mild multilevel anterior osteophytes are seen at the cervical spine. IMPRESSION: There are no findings to suggest an acute fracture or subluxation within the cervical spine.
[2020-03-21] MEDS ORDERED: NORMAL SALINE 500 ML IV ONE (09:36)
[2020-03-21] MEDS ORDERED: LIDOCAINE 1%/EPINEPHRINE INJ 20 ML VIAL ONE (11:59)
[2020-03-21 13:18] VITALS: BP 130/59
== END 2020-03-21 13:35 | disposition home or self-care (01) ==
LOC: ER 06:23
DX: S01.01XA Laceration without foreign body of scalp, initial encounter (principal); W01.198A Fall on same level from slipping, tripping and stumbling with subsequent striking against other object, initial encounter; Y93.89 Activity, other specified; Y92.002 Bathroom of unspecified non-institutional (private) residence as the place of occurrence of the external cause; I10 Essential (primary) hypertension; Z88.8 Allergy status to other drugs, medicaments and biological substances; Z88.1 Allergy status to other antibiotic agents; Z79.82 Long term (current) use of aspirin; Z88.2 Allergy status to sulfonamides
CPT/HCPCS: 99284; 96360; 70450; 72125; 12004; J3490; J7040

== ENCOUNTER → 2020-09-08 | Outpatient (CLI) | payer MEDICARE, OTHER ==
[2020-09-08 14:39] LABS: ANION GAP 11 (5-19); BLOOD UREA NITROGEN 49 mg/dL (7-20); CALCIUM 9.2 mg/dL (8.4-10.2); CARBON DIOXIDE 27 mmol/L (22-30); CHLORIDE 99 mmol/L (98-107); GLUCOSE 102 mg/dL (75-110); POTASSIUM 5.2 mmol/L (3.6-5.0)
== END ==
LOC: OD 13:12
PROVIDERS: ATTEND Internal Medicine
DX: N18.30 Chronic kidney disease, stage 3 unspecified (principal); E87.1 Hypo-osmolality and hyponatremia
CPT/HCPCS: 36415; 80048